=== PATIENT | female | born 1960 | race Caucasian/White ===

== ENCOUNTER 2022-09-02 16:41 | Emergency (ER) | payer OTHER ==
[~2022-09-02] VITALS: Ht 162.6 cm; Wt 61.2 kg
[2022-09-02 17:03] VITALS: BP 166/84
[2022-09-02] MEDS ORDERED: DEXAMETHASONE SOD PHOSPHATE 4 MG/ML 1ML VIAL IV ONE (19:30)
[2022-09-02] MEDS ORDERED: CEFTRIAXONE 1G VIAL IM ONE (19:30)
[2022-09-02] MEDS ORDERED: CIPR7.5D OT (19:32)
[2022-09-02] MEDS ORDERED: ACET15SO4 OT (19:32)
[2022-09-02] MEDS ORDERED: LIDOCAINE HCL 1% 20 ML VIAL ONE (19:32)
== END 2022-09-02 20:12 | disposition home or self-care (01) ==
LOC: EDH 16:41
DX: H60.91 Unspecified otitis externa, right ear (principal); E11.9 Type 2 diabetes mellitus without complications; E78.5 Hyperlipidemia, unspecified; Z88.1 Allergy status to other antibiotic agents; Z88.8 Allergy status to other drugs, medicaments and biological substances
CPT/HCPCS: 99284; 96374; 96372; J1100; J0696

== ENCOUNTER 2022-09-11 09:45 | Emergency (ER) | payer OTHER ==
[~2022-09-11] VITALS: Ht 162.6 cm; Wt 59.0 kg
[~2022-09-11 09:45] MED LIST: ACET15SO4 OT; CIPR7.5D OT
[2022-09-11 10:04] LABS: BASOPHILS % (AUTO) 0.6 % (0.0-5.0); EOSINOPHILS % (AUTO) 2.2 % (0.0-8.0); HEMATOCRIT 34.7 % (36-48); LYMPHOCYTES % (AUTO) 38.4 % (21.0-51.0); MEAN CORPUSCULAR HEMOGLOBIN 30.2 pg (27.0-33.0); MEAN CORPUSCULAR HGB CONC 34.9 g/dL (32.0-36.0); MEAN CORPUSCULAR VOLUME 86.5 fL (79-99); MONOCYTES % (AUTO) 6.3 % (3.0-13.0); NEUTROPHILS % (AUTO) 52.1 % (40.0-77.0); PLATELET COUNT (AUTO) 595 K/uL (130-400); RED BLOOD CELL COUNT(AUTO) 4.01 MIL/uL (4.00-5.50); RED CELL DISTRIBUTION WIDTH 12.9 % (11.0-15.5); WHITE BLOOD COUNT (AUTO) 12.4 K/uL (4.8-10.8)
[2022-09-11 10:21] LABS: CREATININE 0.9 mg/dL (0.5-1.5); POTASSIUM 4.2 mmol/L (3.5-5.1)
[2022-09-11 10:25] LABS: TOTAL PROTEIN, SERUM 7.9 g/dL (6.0-8.3)
[2022-09-11 10:33] LABS: INR 0.93 (0.85-1.15); PROTHROMBIN TIME 9.8 SEC (9.6-11.6)
[2022-09-11 10:35] LABS: PARTIAL THROMBOPLASTIN TIME 28.9 SEC (26.3-35.5)
[2022-09-11 10:41] LABS: CREATINE KINASE, TOTAL 49 U/L (21-232); LDL DIRECT 48 mg/dL (0-99)
[2022-09-11] MEDS ORDERED: MECLIZINE HCL 25 MG TABLET PO ONE (12:00)
[2022-09-11] MEDS ORDERED: DIAZEPAM 2 MG TAB PO ONE (12:00)
[2022-09-11] MEDS ORDERED: GADOTERATE MEGLUMINE 10 MMOL/20 ML VIAL IV ONE (12:11)
[2022-09-11 12:39] LABS: APPEARANCE,URINE CLEAR (CLEAR); BILIRUBIN,URINE NEGATIVE (NEGATIVE); COLOR,URINE COLORLESS (YELLOW); GLUCOSE, URINE (UA) NEGATIVE (NEGATIVE); KETONES,URINE NEGATIVE (NEGATIVE); LEUKOCYTE ESTERASE ,URINE NEGATIVE Leu/uL (NEGATIVE); NITRATE,URINE NEGATIVE (NEGATIVE); OCCULT BLOOD,URINE NEGATIVE (NEGATIVE); PROTEIN,URINE NEGATIVE (NEGATIVE); UROBILINOGEN,URINE 0.2 mg/dL (0.2-1.0)
[2022-09-11] MEDS ORDERED: IOHEXOL 350 MG/ML 100ML INFUS..BTL IV ONE (12:59)
[2022-09-11] MEDS ORDERED: CEFTRIAXONE 1G VIAL IVP ONE (16:30)
[2022-09-11] MEDS ORDERED: ONDA4TAB10 PO (16:31)
[2022-09-11] MEDS ORDERED: AMOX-426 PO (16:31)
[2022-09-11] MEDS ORDERED: MECL-160 PO (16:31)
[2022-09-11 16:40] VITALS: BP 153/69
== END 2022-09-11 17:00 | disposition home or self-care (01) ==
LOC: EDH 09:45
DX: H70.93 Unspecified mastoiditis, bilateral (principal); R42 Dizziness and giddiness; E11.9 Type 2 diabetes mellitus without complications; E78.00 Pure hypercholesterolemia, unspecified; Z79.899 Other long term (current) drug therapy; Z79.2 Long term (current) use of antibiotics; Z88.1 Allergy status to other antibiotic agents; Z88.8 Allergy status to other drugs, medicaments and biological substances
CPT/HCPCS: 99285; 70496; 70553; 96374; 71045; 82550; 83721; 84484; 80053; 83880; 85025; 85610; 85730; 82948; 81003; 36415; 70498; 93005; 70450; J0696; Q9967; A9575